=== PATIENT | female | born 1960 | race Caucasian/White ===

== ENCOUNTER 2017-03-29 18:11 | Observation (INO) | payer OTHER ==
[2017-03-29] VITALS (7 sets, daily range): BP systolic 116–185; BP diastolic 62–110; PULSE 84–112; RESP 18–20; TEMP 97.5; O2SAT 96–97
[~2017-03-29] VITALS: Ht 160 cm; Wt 69.1 kg
[2017-03-29] MEDS ORDERED: ASPI-516 CHEW (19:10)
[2017-03-29] MEDS ORDERED: ALPR.5 PO (19:10)
[2017-03-29] MEDS ORDERED: LOSA50TA PO (19:10)
[2017-03-29] MEDS ORDERED: KETO10 PO (19:10)
[2017-03-29] MEDS ORDERED: ATOR40TA16 PO (19:10)
[2017-03-29] MEDS ORDERED: ALBUAER3 INH (19:10)
--- NOTE | 2017-03-29 19:10 | PD ---
HPI Chief Complaint: Chest Pain Time Seen by Provider: 19:08 Travel History International Travel<30 days: No Contact w/Intl Traveler<30days: No Traveled to known affect area: No History of Present Illness HPI The patient is a 56 year old female who presents to the [facility] emergency department with a history of reportedly shortly after awakening this morning having onset of left arm pain. She reports that she later noticed throughout the day having chest tightness in the center of her chest. The patient reports that the pain has persisted in her left arm. She reports that she went to her primary care physician's office and was told to come to the emergency department after her blood pressure was noted to be elevated. The patient reports having nausea and a warmth patient throughout her body. She denies having any diaphoresis. She denies having any vomiting. The patient reports that she was newly placed on blood pressure medicine approximately a month ago. She is currently on losartan. The patient's blood pressure on my arrival to the room is 185/110. The patient reports that she did take one low- dose aspirin earlier today. The patient reports having a history of being prediabetic, having a history of hypertension, hyperlipidemia, and tobacco use of one pack per day. The patient also has a family history of heart disease specifically in her father who had his first [place] in his late 40s. The patient reports that she last had a stress test done in 2009. Review of systems otherwise, the patient denies having any recent fevers, worsening cough or congestion, neck pain, shortness of breath, abdominal pain, diarrhea, urinary symptoms, or neurologic symptoms. [facility] Past Medical History Narrative Medical The patient's past medical history is significant for being prediabetic, history of migraine headaches, history of COPD, hyperlipidemia, hypertension, anxiety disorder, tobacco use, history of human's ago of having weakness of her right upper extremity associated right-sided neck pain requiring admission to [facility]. She reports that a stroke was ruled out. She is unsure what the diagnosis was related to her symptomatology. Asthma: Yes High Cholesterol: Yes Diabetes: Yes Hypertension: Yes Tetanus Vaccination: < 5 Years ?: Not Past Surgical History Narrative Surgical The patient's past surgical history is significant for a hysterectomy. Hysterectomy: Yes Social History Alcohol Use: No Tobacco Use: Yes (one pack per day) Substance Use: No Allergies-Medications (Allergen,Severity, Reaction): Coded Allergies: Sulfa (Sulfonamide Antibiotics) (Verified Adverse Reaction, Severe, Headache, 03/29/17) codeine (Verified Adverse Reaction, Severe, Nausea/Vomiting, 03/29/17) morphine (Verified Adverse Reaction, Severe, Nausea/Vomiting, 03/29/17) Reported Meds & Prescriptions Reported Meds & Active Scripts Active Reported Xanax (Alprazolam) 0.5 Mg Tab 0.5 Mg PO Q8H PRN Atorvastatin (Atorvastatin Calcium) 40 Mg Tab 40 Mg PO HS Losartan (Losartan Potassium) 50 Mg Tab 50 Mg PO DAILY Ketorolac (Ketorolac Tromethamine) 10 Mg Tab 10 Mg PO TID Proair Hfa 8.5 GM Inh (Albuterol Sulfate) 90 Mcg/Act Aer 2 Puff INH Q4-6H PRN 108 mcg/actuation Aspirin 81 Mg Chew 81 Mg CHEW DAILY Review of Systems Except as stated in HPI: all other systems reviewed are Neg General / Constitutional: No: Fever Eyes: No: Visual changes HENT: No: Headaches, Rhinorrhea, Congestion, Neck Stiffness, Neck Pain Cardiovascular: Positive: Chest Pain or Discomfort Respiratory: No: Cough, Shortness of Breath Gastrointestinal: Positive: Nausea, No: Vomiting, Diarrhea, Abdominal Pain Genitourinary: No: Dysuria Musculoskeletal: No: Pain Skin: No Rash Neurologic: No: Weakness, Focal Abnormalities, Change in Mentation, Slurred Speech, Sensory Disturbance Psychiatric: No: Depression Endocrine: No: Polydipsia Hematologic/Lymphatic: No: Easy Bruising Physical Exam Narrative General: The patient is a well-developed well-nourished female in no acute distress. Head and Neck exam: Head is normocephalic atraumatic. Eyes: EOMI, pupils are equal round and reactive to light. Nose: Midline septum with pink mucous membranes Mouth: Dentition unremarkable. Moist mucus membranes. Posterior oropharynx is not erythematous. No tonsillar hypertrophy. Uvula midline. Airway patent. Neck: No palpable lymphadenopathy. No nuchal rigidity. No thyromegaly. Cardiovascular: Regular rate and rhythm without murmurs, gallops, or rubs. Lungs: Clear to auscultation bilaterally. No wheezes, rhonchi, or rales. Abdomen: Soft, without tenderness to palpation in all 4 quadrants of the abdomen. No guarding, rebound, or rigidity. Normal bowel sounds are audible. No tenderness on palpation of McBurney's point. Extremities: No clubbing, cyanosis, or edema. 2+ pulses in all 4 extremities. No calf tenderness on palpation. Back: No spinous process tenderness to palpation. No costovertebral angle tenderness to palpation. Neurologic Exam: Grossly nonfocal. Skin Exam: No rash noted. Intact skin that is warm and dry. Data Data Last Documented VS Vital Signs Date Time Temp Pulse Resp B/P (MAP) Pulse Ox O2 Delivery O2 Flow Rate FiO2 03/29/17 21:00 94 122/77 (92) 03/29/17 19:31 20 96 03/29/17 19:11 Room Air 03/29/17 18:13 97.5 Orders Orders Electrocardiogram (03/29/17 19:09) B-Type Natriuretic Peptide (03/29/17 19:09) Ckmb (Isoenzyme) Profile (03/29/17 19:09) Complete Blood Count With Diff (03/29/17 19:09) Comprehensive Metabolic Panel (03/29/17 19:09) Magnesium (Mg) (03/29/17 19:09) Prothrombin Time / Inr (Pt) (03/29/17 19:09) Act Partial Throm Time (Ptt) (03/29/17 19:09) Troponin I (03/29/17 19:09) Lipase (03/29/17 19:09) Chest, Single Ap (03/29/17 19:09) Ecg Monitoring (03/29/17 19:09) Bilateral Bp Monitoring (03/29/17 19:09) Iv Access Insert/Monitor (03/29/17 19:09) Oximetry (03/29/17 19:09) Oxygen Administration (03/29/17 19:09) Aspirin Chew (Aspirin Chew) (03/29/17 19:15) Sodium Chloride 0.9% Flush (Ns Flush) (03/29/17 19:15) Nitroglycerin Sl (Nitrostat Sl) (03/29/17 19:15) Nitroglycerin Sl (Nitrostat Sl) (03/29/17 19:30) Nitroglycerin 2% Oint (Nitroglycerin 2% (03/29/17 19:30) Aspirin Chew (Aspirin Chew) (03/29/17 19:30) Admit Order (Ed Use Only) (03/29/17 21:07) Labs Laboratory Tests Test 03/29/17 19:20 White Blood Count 8.2 TH/MM3 Red Blood Count 5.18 MIL/MM3 Hemoglobin 16.1 GM/DL Hematocrit 46.3 % Mean Corpuscular Volume 89.4 FL Mean Corpuscular Hemoglobin 31.1 PG Mean Corpuscular Hemoglobin Concent 34.7 % Red Cell Distribution Width 12.9 % Platelet Count 184 TH/MM3 Mean Platelet Volume 10.4 FL Neutrophils (%) (Auto) 64.5 % Lymphocytes (%) (Auto) 27.0 % Monocytes (%) (Auto) 5.7 % Eosinophils (%) (Auto) 2.2 % Basophils (%) (Auto) 0.6 % Neutrophils # (Auto) 5.3 TH/MM3 Lymphocytes # (Auto) 2.2 TH/MM3 Monocytes # (Auto) 0.5 TH/MM3 Eosinophils # (Auto) 0.2 TH/MM3 Basophils # (Auto) 0.0 TH/MM3 CBC Comment DIFF FINAL Differential Comment Prothrombin Time 10.0 SEC Prothromb Time International Ratio 0.9 RATIO Activated Partial Thromboplast Time 26.5 SEC Blood Urea Nitrogen 12 MG/DL Creatinine 0.72 MG/DL Random Glucose 109 MG/DL Total Protein 8.2 GM/DL Albumin 4.0 GM/DL Calcium Level 9.4 MG/DL Magnesium Level 2.0 MG/DL Alkaline Phosphatase 252 U/L Aspartate Amino Transf (AST/SGOT) 49 U/L Alanine Aminotransferase (ALT/SGPT) 81 U/L Total Bilirubin 0.3 MG/DL Sodium Level 136 MEQ/L Potassium Level 3.8 MEQ/L Chloride Level 102 MEQ/L Carbon Dioxide Level 24.8 MEQ/L Anion Gap 9 MEQ/L Estimat Glomerular Filtration Rate 83 ML/MIN Total Creatine Kinase 66 U/L Troponin I LESS THAN 0.02 NG/ML B-Type Natriuretic Peptide LESS THAN 2 PG/ML Lipase 127 U/L MDM Medical Decision Making Medical Screen Exam Complete: Yes Emergency Medical Condition: Yes Medical Record Reviewed: Yes Interpretation(s) Last Impressions Chest X-Ray 03/29/17 7759 Signed Impressions: Service Date/Time: Wednesday, March 29, 2017 19:45 - CONCLUSION: No acute disease. Ellis Olmstead Jr., MD Differential Diagnosis Acute coronary syndrome, versus aortic dissection, versus hypertensive urgency, versus pleurisy, versus acid reflux, versus pneumonia Narrative Course During the course of the patients emergency department visit, the patients history, examination, and differential diagnosis were reviewed with the patient. The patient was placed on a cardiac rehabilitation program director with oximetry and frequent blood pressure monitoring. The patient had IV access obtained and blood work sent for analysis. The patient had an ECG done on arrival that shows a sinus rhythm heart rate of 99, QRS duration 95 ms, QTC [address] segment elevation is noted. T waves are inverted in V1. The patient was initially provided aspirin 243 mg by mouth 1, sublingual nitroglycerin every 5 minutes 3, nitroglycerin 1 inch the chest wall. The patients laboratory studies were reviewed and remarkable for a white count of 8.2, hemoglobin 16.1, platelets 184, with an unremarkable differential, CMP is remarkable for a glucose of 109, AST 49, ALT 81, alkaline phosphatase 252, CPK 66, troponin I less than 0.02, lipase 127, BNP is less than 2, PT PTT within normal limits. Radiology studies were reviewed and remarkable for a chest x-ray that shows no acute cardiopulmonary disease. The patients results were discussed with the patient, including the plan of care. I explained that further testing and/ or monitoring is indicated based on the patients history, examination, and/ or laboratory findings. Therefore, I recommended admission for additional evaluation. The patient expressed understanding and was agreeable with this plan. The patient was admitted to the hospital in stable condition and sent to a bed under the care of the chest pain center. Diagnosis Primary Impression: Chest pain, rule out acute myocardial infarction Additional Impression: Uncontrolled hypertension Admitting Information Admitting Physician Requests: Observation Alejandra Robledo MD Mar 29, 2017 19:10
[2017-03-29] MEDS ORDERED: SODIUM CHLORIDE 0.9% FLUSH 10 ML FLUSH IVF PRN (19:15)
[2017-03-29] MEDS ORDERED: NITROGLYCERIN 0.4 MG SL 25 TABS/BTL SL ONE (19:15)
[2017-03-29] MEDS ORDERED: ASPIRIN 81 MG CHEW TAB PO ONE (19:15)
[2017-03-29] MEDS ORDERED: ASPIRIN 81 MG CHEW TAB CHEW ONE (19:30)
[2017-03-29] MEDS ORDERED: NITROGLYCERIN 2% OINT 1 GM PACKET TOPICAL ONE (19:30)
[2017-03-29] MEDS: NITROGLYCERIN 0.4 MG SL 25 TABS/BTL SL PRN ×2 (19:30→19:35)
[2017-03-29 20:15] LABS: AUTOMATED NEUTROPHIL # 5.3 TH/MM3 (1.8-7.7); BASOPHIL % 0.6 % (0.0-2.0); EOSINOPHIL # 0.2 TH/MM3 (0-0.4); EOSINOPHIL % 2.2 % (0.0-4.0); HEMATOCRIT 46.3 % (35.0-46.0); HEMO FLAGS DIFF FINAL; LYMPHOCYTE # 2.2 TH/MM3 (1.0-4.8); MEAN CELL VOLUME 89.4 FL (80.0-100.0); MEAN CORPUSCULAR HEMOGLOBIN 31.1 PG (27.0-34.0); MEAN CORPUSCULAR HGB CONC 34.7 % (32.0-36.0); MONO % 5.7 % (0.0-8.0); NEUT % 64.5 % (16.0-70.0); PLATELET COUNT 184 TH/MM3 (150-450); RED BLOOD COUNT 5.18 MIL/MM3 (4.00-5.30); RED CELL DISTRIBUTION WIDTH 12.9 % (11.6-17.2); WHITE BLOOD COUNT 8.2 TH/MM3 (4.0-11.0)
--- NOTE | 2017-03-29 20:15 | RADRPT ---
EXAM DATE/TIME: 03/29/2017 19:45 [facility] COMPARISON: No previous studies available for comparison. INDICATIONS : Chest pain, short of breath. MEDICAL HISTORY : None. SURGICAL HISTORY : None. ENCOUNTER: Initial ACUITY: 1 day PAIN SCORE: 0/10 LOCATION: Bilateral chest FINDINGS: A single view of the chest demonstrates the lungs to be symmetrically aerated without evidence of mas s, infiltrate or effusion. The cardiomediastinal contours are unremarkable. Osseous structures are intact. CONCLUSION: No acute disease. Ellis Olmstead Jr., MD on March 29, 2017 at 20:12 Board Certified Radiologist. This report was verified electronically.
[2017-03-29 20:23] LABS: APTT (PATIENT) 26.5 SEC (24.3-30.1); INTERNATIONAL NORMALIZED RATIO 0.9 RATIO
[2017-03-29 20:45] LABS: ALT (GPT) 81 U/L (10-53)
[2017-03-29 20:53] LABS: ALKALINE PHOSPHATASE 252 U/L (45-117); ANION GAP 9 MEQ/L (5-15); AST (GOT) 49 U/L (15-37); BICARBONATE 24.8 MEQ/L (21.0-32.0); BLOOD UREA NITROGEN 12 MG/DL (7-18); CHLORIDE 102 MEQ/L (98-107); GLOMERULAR FILTRATION RATE 83 ML/MIN (>89); POTASSIUM 3.8 MEQ/L (3.5-5.1); SODIUM (NA) 136 MEQ/L (136-145); TOTAL BILIRUBIN ADULT 0.3 MG/DL (0.2-1.0)
[2017-03-29 20:55] LABS: CREATINE KINASE 66 U/L (26-192)
[2017-03-29] MEDS ORDERED: TEMAZEPAM 15 MG CAP PO PRN (23:30)
[2017-03-29] MEDS ORDERED: ACETAMINOPHEN 500 MG CPLT PO PRN (23:30)
[2017-03-29] MEDS ORDERED: SODIUM CHLORIDE 0.9% FLUSH 10 ML FLUSH IV FLUSH PRN (23:30)
[2017-03-29] MEDS ORDERED: ONDANSETRON HCL 4 MG/2 ML VIAL IV PUSH PRN (23:30)
[2017-03-30 00:17] LABS: CREATINE KINASE 50 U/L (26-192)
[2017-03-30 02:58] LABS: CREATINE KINASE 46 U/L (26-192)
[2017-03-30 03:12] VITALS: BP 130/63; PULSE 81; RESP 18; TEMP 97.3; O2SAT 90
[2017-03-30 04:52] VITALS: PULSE 85
[2017-03-30 07:54] VITALS: BP 119/63; PULSE 87; RESP 20; TEMP 97.8; O2SAT 96
[2017-03-30 08:15] VITALS: O2SAT 96
[2017-03-30 08:30] VITALS: PULSE 83
[2017-03-30] MEDS ORDERED: SODIUM CHLORIDE 0.9% FLUSH 10 ML FLUSH IV FLUSH SCH (09:00)
[2017-03-30] MEDS ORDERED: REGADENOSON INJ 0.4 MG/5 ML SYR ONE (10:22)
--- NOTE | 2017-03-30 11:46 | RADRPT ---
EXAM DATE/TIME: 03/30/2017 10:29 [facility] COMPARISON: No previous studies available for comparison. INDICATIONS : Left arm pain moving to substernal chest pain. Angina. DOSE: 27.1 mCi Tc99m Myoview at stress. 8.3 mCi Tc99m Myoview at rest. 0.4 mg Lexiscan STRESS SYMPTOMS: Dyspnea and diaphoresis. EJECTION FRACTION: > 70% MEDICAL HISTORY : Hypercholesterolemia. Hypertension. Diabetes mellitus type 2. SURGICAL HISTORY : Hysterectomy. ENCOUNTER: Initial ACUITY: 1 day PAIN SCALE: 6/10 LOCATION: Substernal chest TECHNIQUE: The patient underwent pharmacologic stress with infusion of prescribed dose. Continuous ECG tracing was monitored during stress. Gated SPECT imaging was performed after stress and conventional SPECT i maging was performed at rest. The examination was performed on a SPECT/CT scanner, both attenuation and non-corrected datasets were reviewed. FINDINGS: DISTRIBUTION: The maximum perfused segment at stress is in the septum and inferior wall. There is minimal redistribution anterior lateral wall, less than 50% of doubtful significance. Corre lation is suggested. There is normal wall motion with ejection fraction greater than 70%. CONCLUSION: Probably negative for stress-induced ischemia. Correlation suggested. RISK CATEGORY: Low (<1% Annual Mortality Rate) Jayme Fuentes MD FACR on March 30, 2017 at 11:44 Board Certified Radiologist. This report was verified electronically.
[2017-03-30 11:54] VITALS: BP 120/79; PULSE 100; RESP 20; TEMP 98.4; O2SAT 93
--- NOTE | 2017-03-30 12:32 | HHI.HP ---
[facility] Primary Care Physician Annetta Munson M.D. Chief Complaint Chest pain History of Present Illness This is a 56-year-old female that presents to ED via private vehicle with a complaint of first doing a left arm discomfort after waking up yesterday morning. He'll be there for a few minutes but was intermittent throughout the day. She states that she then had lunch in the afternoon and soon after having lunch developed a central chest tightness with nausea. She decided to get checked at her PCP. She states that her blood pressure was elevated at 160/110 and was then told to come to the ED for further evaluation. The chest tightness is still there however the intensity waxes and wanes. She found nothing to really worsen or improve it. Denies recent illness. Denies fevers or chills. Denies emesis. Denies diarrhea constipation blood in stool. Review of Systems General: Patient denies fevers, chills recent, and recent travel HEENT: Patient denies headache, sore throat, difficulty swallowing. Cardiovascular: Has the chest discomfort as mentioned above. Denies sensation of heart beating rapidly or irregularly. No syncope. Denies diaphoresis. Respiratory: Denies shortness of breath or inspirational chest discomfort. Denies coughing wheezing or hemoptysis. GI: She was nauseous. Patient denies vomiting, diarrhea, abdominal pain, bloody stools. Musculoskeletal: Patient denies joint pain or edema. Denies calf pain or edema. Neurovascular: Patient denies numbness, tingling, weakness in extremities. Denies headache. Endocrine: Denies polyuria and polydipsia. Hematologic: Denies easy bruising. Skin: Denies rash or itching. Past Family Social History Allergies: Coded Allergies: Sulfa (Sulfonamide Antibiotics) (Verified Adverse Reaction, Severe, Headache, 03/29/17) codeine (Verified Adverse Reaction, Severe, Nausea/Vomiting, 03/29/17) morphine (Verified Adverse Reaction, Severe, Nausea/Vomiting, 03/29/17) Past Medical History Hypertension, hyperlipidemia, anxiety, tobacco abuse. Denies diabetes and known CAD. Past Surgical History Hysterectomy. Reported Medications Reported Meds & Active Scripts Active Reported Xanax (Alprazolam) 0.5 Mg Tab 0.5 Mg PO Q8H PRN Atorvastatin (Atorvastatin Calcium) 40 Mg Tab 40 Mg PO HS Losartan (Losartan Potassium) 50 Mg Tab 50 Mg PO DAILY Ketorolac (Ketorolac Tromethamine) 10 Mg Tab 10 Mg PO TID Proair Hfa 8.5 GM Inh (Albuterol Sulfate) 90 Mcg/Act Aer 2 Puff INH Q4-6H PRN 108 mcg/actuation Aspirin 81 Mg Chew 81 Mg CHEW DAILY Active Ordered Medications Current Medications Medications (Trade) Dose Ordered Sig/Abhilash Route Start Time Stop Time Status Last Admin (NS Flush) 2 ml UNSCH PRN IVF 03/29/17 19:15 (Nitrostat Sl) 0.4 mg Q5M PRN SL 03/29/17 19:30 03/29/17 19:35 (NS Flush) 2 ml UNSCH PRN IV FLUSH 03/29/17 23:30 (NS Flush) 2 ml BID IV FLUSH 03/30/17 09:00 (Tylenol) 500 mg Q4H PRN PO 03/29/17 23:30 (Zofran Inj) 4 mg Q6H PRN IV PUSH 03/29/17 23:30 (Restoril) 15 mg HS PRN PO 03/29/17 23:30 03/29/17 23:32 Family History States that her father had onset CAD in his 50s of pancreatic cancer. Social History Patient smokes one pack of cigarettes daily. Denies alcohol or illicit drugs. Physical Exam Vital Signs Vital Signs Date Time Temp Pulse Resp B/P (MAP) Pulse Ox O2 Delivery O2 Flow Rate FiO2 03/30/17 11:54 98.4 100 20 120/79 (93) 93 03/30/17 08:30 83 03/30/17 08:15 96 21 03/30/17 07:54 97.8 87 20 119/63 (81) 96 03/30/17 04:52 85 03/30/17 03:12 97.3 81 18 130/63 (85) 90 03/29/17 23:26 84 20 120/62 (81) 97 Room Air 03/29/17 23:15 96 Room Air 03/29/17 23:15 Room Air 03/29/17 21:00 94 122/77 (92) 03/29/17 19:31 110 20 175/96 (122) 96 03/29/17 19:12 185/110 (135) 03/29/17 19:11 97 03/29/17 19:11 97 Room Air 03/29/17 18:13 97.5 112 18 116/73 (87) 96 Room Air Physical Exam GENERAL: This is a well-nourished, well-developed patient, in no apparent distress. Patient speaks in clear complete sentences. Patient is pleasant. HEENT: Head is atraumatic and normocephalic. Neck is supple without lymphadenopathy and trachea is midline. No JVD or carotid bruits. CARDIOVASCULAR: Regular rate and rhythm without murmurs, gallops, or rubs. RESPIRATORY: Clear to auscultation. Breath sounds equal bilaterally. No wheezes , rales, or rhonchi. Chest wall is nontender. No use of accessory muscles. GASTROINTESTINAL: Abdomen is nontender, nondistended. Abdomen soft. No obvious pulsatile mass or bruit. No CVA tenderness. Strong femoral pulses bilaterally. Normal bowel sounds in all quadrants. MUSCULOSKELETAL: Patient is moving upper and lower extremities freely. No calf tenderness or edema, no Homans sign. Strong pulses in upper and lower extremities. NEUROLOGICAL: Patient is alert and oriented. Cranial nerves 2-12 are grossly intact. No focal deficits and speech is clear. SKIN: No rash and turgor is normal. Laboratory Laboratory Tests Test 03/29/17 19:20 03/29/17 23:26 03/30/17 02:15 White Blood Count 8.2 Red Blood Count 5.18 Hemoglobin 16.1 Hematocrit 46.3 Mean Corpuscular Volume 89.4 Mean Corpuscular Hemoglobin 31.1 Mean Corpuscular Hemoglobin Concent 34.7 Red Cell Distribution Width 12.9 Platelet Count 184 Mean Platelet Volume 10.4 Neutrophils (%) (Auto) 64.5 Lymphocytes (%) (Auto) 27.0 Monocytes (%) (Auto) 5.7 Eosinophils (%) (Auto) 2.2 Basophils (%) (Auto) 0.6 Neutrophils # (Auto) 5.3 Lymphocytes # (Auto) 2.2 Monocytes # (Auto) 0.5 Eosinophils # (Auto) 0.2 Basophils # (Auto) 0.0 CBC Comment DIFF FINAL Differential Comment Prothrombin Time 10.0 Prothromb Time International Ratio 0.9 Activated Partial Thromboplast Time 26.5 Blood Urea Nitrogen 12 Creatinine 0.72 Random Glucose 109 Total Protein 8.2 Albumin 4.0 Calcium Level 9.4 Magnesium Level 2.0 Alkaline Phosphatase 252 Aspartate Amino Transf (AST/SGOT) 49 Alanine Aminotransferase (ALT/SGPT) 81 Total Bilirubin 0.3 Sodium Level 136 Potassium Level 3.8 Chloride Level 102 Carbon Dioxide Level 24.8 Anion Gap 9 Estimat Glomerular Filtration Rate 83 Total Creatine Kinase 66 50 46 Troponin I LESS THAN 0.02 LESS THAN 0.02 LESS THAN 0.02 B-Type Natriuretic Peptide LESS THAN 2 Lipase 127 Result Diagram: 03/29/17191903/29/171919 Imaging Last 48 hours Impressions Myocardial Perfusion Scan Nuc Med 03/30/17 0000 Signed Impressions: Service Date/Time: Thursday, March 30, 2017 10:29 - CONCLUSION: Probably negative for stress-induced ischemia. Correlation suggested. RISK CATEGORY: Low (<1%% Annual Mortality Rate) Jayme Fuentes MD FACR Chest X-Ray 03/29/171908 Signed Impressions: Service Date/Time: Wednesday, March 29, 2017 19:45 - CONCLUSION: No acute disease. Ellis Olmstead Jr., MD Course EKGs are sinus rhythm without significant ST segment depressions or elevations. Caprini VTE Risk Assessment Caprini VTE Risk Assessment: No/Low Risk (score <= 1) Caprini Risk Assessment Model Point Value = 1 Point Value = 2 Point Value = 3 Point Value = 5 Age 41-60 Minor surgery BMI > 25 kg/m2 Swollen legs Varicose veins or History of unexplained or recurrent spontaneous Oral contraceptives or hormone replacement Sepsis (< 1 month) Serious lung disease, including pneumonia (< 1 month) Abnormal pulmonary function Acute myocardial infarction Congestive heart failure (< 1 month) History of inflammatory bowel disease Medical patient at bed rest Age 61-74 Arthroscopic surgery Major open surgery (> 45 min) Laparoscopic surgery (> 45 min) Malignancy Confined to bed (> 72 hours) Immobilizing plaster cast Central venous access Age >= 75 History of VTE Family history of VTE Factor V Leiden Prothrombin [id number] Lupus anticoagulant Anticardiolipin antibodies Elevated serum homocysteine Heparin-induced thrombocytopenia Other congenital or acquired thrombophilia Stroke (< 1 month) Elective arthroplasty Hip, pelvis, or leg fracture Acute spinal cord injury (< 1 month) Prophylaxis Regimen Total Risk Factor Score Risk Level Prophylaxis Regimen 0-1 Low Early ambulation 2 Moderate Order ONE of the following: *Sequential Compression Device (SCD) *Heparin 5000 units SQ BID 3-4 Higher Order ONE of the following medications: *Heparin 5000 units SQ TID *Enoxaparin/Lovenox 40 mg SQ daily (WT < 150 kg, CrCl > 30 mL/min) *Enoxaparin/Lovenox 30 mg SQ daily (WT < 150 kg, CrCl > 10-29 mL/min) *Enoxaparin/Lovenox 30 mg SQ BID (WT < 150 kg, CrCl > 30 mL/min) AND/OR *Sequential Compression Device (SCD) 5 or more Highest Order ONE of the following medications: *Heparin 5000 units SQ TID (Preferred with Epidurals) *Enoxaparin/Lovenox 40 mg SQ daily (WT < 150 kg, CrCl > 30 mL/min) *Enoxaparin/Lovenox 30 mg SQ daily (WT < 150 kg, CrCl > 10-29 mL/min) *Enoxaparin/Lovenox 30 mg SQ BID (WT < 150 kg, CrCl > 30 mL/min) AND *Sequential Compression Device (SCD) Assessment and Plan Assessment and Plan * Chest pain: Patient has had serial cardiac enzymes and EKGs for ruling out purposes. She was seen by Dr. Sameer Moreno of cardiology and the chest pain center. He had a Lexiscan and results were discussed with Dr. Moreno as negative and will be discharged home at this time with instructions to follow- up with PCP and cardiology. Return to ED for interval issues. * Hypertension: Continue current medication. * Hyperlipidemia: Continue current medication. * Tobacco abuse: Patient has been counseled on the importance of smoking cessation. Patient is stable at this time. She is agreeable to this plan. Joshua Jack Mar 30, 2017 12:31
--- NOTE | 2017-03-30 12:34 | HHI.DCPOC ---
Discharge Care Plan Diagnosis: (1) Chest pain (2) Hypertension (3) Hyperlipidemia (4) Tobacco abuse Goals to Promote Your Health * To prevent worsening of your condition and complications * To maintain your health at the optimal level Directions to Meet Your Goals Take your medications as prescribed Follow your dietary instruction Follow activity as directed Keep your appointments as scheduled Take your immunizations and boosters as scheduled If your symptoms worsen call your PCP, if no PCP go to Urgent Care Center or Emergency Room Smoking is Dangerous to Your Health. Avoid second hand smoke Call the 24-hour hour crisis hotline for domestic abuse at Joshua Jack Mar 30, 2017 12:33
--- NOTE | 2017-03-30 12:35 | EKG ---
Date Performed: 03/30/2017 Time Performed: 03:04:10 PTAGE: 56 years EKG: Sinus rhythm NORMAL ECG PREVIOUS TRACING : 03/29/2017 18.47 Since previous tracing, no significant change noted DOCTOR: Sameer Moreno Interpretating Date/Time 03/30/2017 12:34:04
--- NOTE | 2017-03-30 12:37 | EKG ---
Date Performed: 03/29/2017 Time Performed: 23:26:28 PTAGE: 56 years EKG: Sinus rhythm NORMAL ECG INTERPRETATION BASED ON A DEFAULT AGE OF 40 YEARS PREVIOUS TRACING : 03/29/2017 18.47 Since previous tracing, no significant change noted DOCTOR: Sameer Moreno Interpretating Date/Time 03/30/2017 12:36:35
--- NOTE | 2017-03-30 12:40 | EKG ---
Date Performed: 03/29/2017 Time Performed: 18:47:56 PTAGE: 56 years EKG: Sinus rhythm NORMAL ECG NO PREVIOUS TRACING DOCTOR: Sameer Moreno Interpretating Date/Time 03/30/2017 12:38:45
--- NOTE | 2017-03-30 12:43 | TR ---
Date Performed: 03/30/2017 Time Performed: 10:45:07 DOCTOR: Sameer Moreno DRUG LIST: CLINICAL HISTORY: REASON FOR TEST: CHEST PAIN REASON FOR ENDING: OBSERVATION: CONCLUSION: Lexiscan stress test was performed under standard four minute protocol. Radionuclid e was injected one minute prior to ending the test. No electrocardiographic abormalities were present to suggest ischemia. Nuclear imaging and interpretation are pending. COMMENTS:
[2017-03-30] MEDS ORDERED: LOSARTAN 50 MG TAB PO SCH (14:00)
[2017-03-30] MEDS ORDERED: ATORVASTATIN 40 MG TAB PO SCH (21:00)
== END 2017-03-30 14:10 | disposition home or self-care (01) ==
LOC: NEPE 18:11 → NEDA 21:08 → NEPGCP 03-30 00:34
PROVIDERS: ADMIT Internal Medicine Interventional Cardiology; ATTEND Internal Medicine Interventional Cardiology
DX: R07.9 Chest pain, unspecified (principal); I10 Essential (primary) hypertension; E78.5 Hyperlipidemia, unspecified; F17.210 Nicotine dependence, cigarettes, uncomplicated; M79.602 Pain in left arm; R11.0 Nausea; R73.03 Prediabetes; Z82.49 Family history of ischemic heart disease and other diseases of the circulatory system; Z79.899 Other long term (current) drug therapy; F41.9 Anxiety disorder, unspecified; R06.00 Dyspnea, unspecified
CPT/HCPCS: 71010; 78452; 80053; 82550; 83690; 83735; 83880; 84484; 85025; 85610; 85730; 93005; 93017; 99285; A9502; G0378; J2785

== ENCOUNTER → 2017-11-07 | Outpatient (CLI) | payer OTHER ==
[~2017-11-07] MED LIST: ALBUAER3 INH; ALPR.5 PO; ASPI-516 CHEW; ATOR40TA16 PO; KETO10 PO; LOSA50TA PO
== END ==
LOC: CLAB 09:21
PROVIDERS: ATTEND Family Medicine
DX: R53.83 Other fatigue (principal)
CPT/HCPCS: 36415; 82140

== ENCOUNTER 2018-02-24 07:33 | Inpatient (IN) ==
[2018-02-24] MEDS ORDERED: Metoprolol Tartrate 25 MG Tablet PO SCH (08:49)
[2018-02-24] MEDS ORDERED: Chlorhexidine Gluconate 2% 1 Pack (2 Cloths) TOPICAL SCH (08:49)
[2018-02-24] MEDS ORDERED: ceFAZolin 2 GM Premix Inj 2 GM/50 ML PIGGYBACK IV.SIG SCH (09:00)
[2018-02-24] MEDS ORDERED: Sodium Chlor 0.9% Inj 500 ML IV.SIG SCH (09:00)
[2018-02-24] MEDS ORDERED: Bupivacaine/Epinephrine Inj 0.25% 50 ML Vial ONE (10:54)
[2018-02-24] MEDS ORDERED: Glycopyrrolate Inj 1 MG/5 ML Syringe IV.PUSH ONE (11:22)
[2018-02-24] MEDS ORDERED: Neostigmine Inj 5 MG/5 ML Syringe IV.PUSH ONE (11:22)
[2018-02-24] MEDS ORDERED: Lidocaine PF 1% Inj 5 ML Syringe OTHER ONE (11:22)
--- NOTE | 2018-02-24 12:39 | P.OP ---
- Preoperative Diagnosis (1) Symptomatic cholelithiasis (2) Primary biliary cirrhosis - Postoperative Diagnosis (1) Primary biliary cirrhosis (2) Symptomatic cholelithiasis Date of procedure: 02/24/18 Procedure: Laparoscopic cholecystectomy Laparoscopic core needle liver biopsy x2 Anesthesia: JAVAD Surgeon: Sebastian Mir MD Design Verification Engineer: Haritha IRELAND Estimated blood loss (mL): 5 Pathology: other (gallbladder, core needle liver biopsy x 2) Operation and Findings: Complications: None apparent Operative findings: Hepatomegaly with moderate appearing fibrosis and nodularity. Gallbladder is thin-walled with single large gallstone. Procedure in detail: The patient was taken to the operating room and placed in the supine position. General endotracheal anesthesia was induced. The abdomen was prepped and draped in usual sterile fashion and a surgical timeout was performed to verify correct patient procedure and site. Appropriate perioperative antibiotics were administered. Local anesthetic was injected in the skin and subcutaneous tissue superior to the umbilicus and a 5 mm incision performed. The abdomen was entered using the Optiview 5 mm trocar with direct laparoscopic visualization. The abdomen was then insufflated to 15 mmHg with CO2 gas which the patient tolerated well. Next a 12 mm port was placed in the epigastrium and two 5 mm ports in the right upper quadrant and right lateral abdomen. The patient was placed in reverse Trendelenburg position and turned slightly to the left. Attention was turned to the right upper quadrant and the dome of the gallbladder was grasped and retracted cephalad. The infundibulum was retracted laterally to expose Calot's triangle. Blunt dissection and judicious use of electrocautery was used to expose the cystic duct and the cystic artery directly entering the gallbladder. Two clips were placed proximally on each of these structures and one distally and they were transected. The gallbladder was then removed from the liver bed using electrocautery. Hemostasis was achieved with electrocautery and placement of 3 g Surgicel powder in the gallbladder fossa. The gallbladder was then removed from the abdomen using an Endo Catch bag. The clips were in place on the cystic duct and cystic artery stumps with no bleeding or bile leakage. Using the BIOPT Gun device two core needle liver biopsies were obtained via a separate small stab incision in the right upper abdomen. Hemostasis was achieved at the sites. At this point, the abdomen was allowed to desufflate and trochars were removed. The fascia at the 12 mm port site was closed with 0 Vicryl suture. Skin was closed with subcuticular 4-0 Monocryl as well as Dermabond. The patient tolerated the procedure well and was extubated and taken to PACU in stable condition. All sponge and instrument counts were correct.
[2018-02-24] MEDS ORDERED: HYDROmorphone PF Inj 2 MG/ML Vial ONE ×3 (13:01→14:02)
[2018-02-24] MEDS ORDERED: Post-op Orders (for Pharmacy) OTHER ONE (13:15)
[2018-02-24] MEDS ORDERED: fentaNYL Citrate Inj 100 MCG/2 ML Ampul ONE (13:40)
--- NOTE | 2018-02-24 13:54 | XR ---
EXAM DATE: 02/24/2018 12:00 AM EDT AGE/SEX: 57 years / Female INDICATIONS: Short of breath. Post Cholecystectomy. CLINICAL DATA: This is the patient's initial encounter. Patient reports that signs and symptoms have been present for 1 day and indicates a pain score of Nonresponsive. MEDICAL/SURGICAL HISTORY: Hypercholesterolemia. Hypertension. Diabetes II Hysterectomy. COMPARISON: [facility] [place]ST [place], 03/29/2017. . FINDINGS: There is mild prominence to the interstitium when compared to the most recent comparison. Cardiac luis armando houette is appropriate in size. Minimal parenchymal changes left base. No pneumothorax. No pleural ef fusion. CONCLUSION: Mild interstitial prominence otherwise negative Electronically signed by: Jayme Fuentes MD 02/24/2018 1:53 PM EDT
[2018-02-24] MEDS ORDERED: Morphine Sulfate Inj 2 MG/ML Vial IV.PUSH PRN (14:39)
[2018-02-24] MEDS ORDERED: Ketorolac Inj 30 MG/ML (IVP) Vial IV.PUSH ONE (14:45)
[2018-02-24 15:26] LABS: ABG Base Excess 1.2 mmol/L (-2-2); ABG PCO2 50 mmHg (38-42); ABG PO2 59 mmHG (61-120)
[2018-02-24] MEDS ORDERED: Naloxone Inj 0.4 MG/ML Vial IV.PUSH PRN (15:50)
[2018-02-24] MEDS: Morphine Inj 4 MG/ML Vial IV.PUSH PRN ×2 (17:19→20:28)
--- NOTE | 2018-02-24 19:18 | P.CONIM ---
History of Present Illness Primary Care Provider: Annetta Munson MD History of Present Illness: Pt is 57 yo admitted after lap michael and liver bx from the [facility]. She had an uneventful operation and had 1100 crystaloid.But in [facility] was severely hypertensive with sbp 220 and hypoxic. Pt was placed on bipap and given 40mg iv lasix for presumed flash pulmonary edema. Hydralazine was given for bp and pain med. I saw the pt in ICU and was on 6lnc and feeling better. her bp normalized. Pt reports that in past her bp intermittently spikes when getting her abdomen pains. PMH: Pt follows with [facility] diagnosed with Primary biliary cirrhosis. elevated AMA ab with imaging finding of cirrhosis. CT a/p 02/21 fatty/nodular changes consistent with cirrhosis. mild splenomegaly. periportal lymphadenopathy CT chest 02/16 Benigh appearing lymph node near xiphoid process PFT 2016 fev1 41% interpret with care and repeat recommended to clarify copd Echo 2017 nlm LVF EF 60%. mild MR and mod TVR Lexiscan 04/08 probably negative for ischemia migraines anxiety/depression cervical dystonia gerd [facility] - History History Provided By: Patient - Medical History Medical History: Medical History (Last Reviewed 02/24/18 @ 08:13 by Mary Beth Dang) Anxiety Back pain COPD (chronic obstructive pulmonary disease) Cervical dystonia Cirrhosis of liver Diverticulitis Gallbladder disease Gallstones H/O: hysterectomy Hiatal hernia History of anesthesia reaction History of tuberculosis Hypercholesteremia Hypertension - Surgical History Surgical History: Surgical History (Last Updated 02/24/18 @ 08:13 by Mary Beth Dang) History of colonoscopy History of esophagogastroduodenoscopy (EGD) - Tobacco History Second Hand Smoke Exposure: Yes Tobacco Use In Past 30 Days: Yes Smoking Status: Current every day smoker Tobacco Type: Cigarettes - Alcohol History How Often Do You Have a Drink Containing Alcohol: Never - Substance Use History Substance History: No History of Abuse - Travel History Recent Travel in the [place] Within the Last 8 Weeks: No Recent Travel Out of the Country Within the Last 8 Weeks: No Medications and Allergies Active Medications: Active Medications Chlorhexidine Gluconate (Chlorhexidine 2% Cloth) 3 pack TOPICAL [employer] L[employer] ROOM ATTENDANT DYAN Stop: 02/27/18 08:48 Last Admin: 02/24/18 08:08 Dose: 3 pack Chlorhexidine Gluconate (Chlorhexidine 2% Cloth) 3 pack TOPICAL DAILY@0400 [facility] Stop: 03/02/18 03:59 Chlorhexidine Gluconate (Chlorhexidine 2% Cloth) 3 pack TOPICAL DAILY@0400 PRN PRN Reason: Extra cloth needed Stop: 03/02/18 03:59 Lactated Ringer's (Lr 1000 Ml Inj) 1,000 mls @ 30 mls/hr IV.SIG .Q24H [facility] Stop: 02/27/18 08:59 Last Admin: 02/24/18 08:15 Dose: 30 mls/hr Sodium Chloride (Ns Inj) 500 mls @ 30 mls/hr IV.SIG .Q10H DYAN Metronidazole/Sodium Chloride (Flagyl 500 Mg Inj) 100 mls @ 100 mls/hr IV.SIG [employer] ROOM ATTENDANT [facility] Stop: 02/27/18 08:59 Last Admin: 02/24/18 09:14 Dose: 100 mls/hr Cefazolin Sodium/Dextrose (Ancef 2 Gm Premix Inj) 2 gm in 50 mls @ 100 mls/hr IV.SIG [employer] ROOM ATTENDANT [facility] Stop: 02/27/18 08:59 Acetaminophen (Ofirmev Inj) 1,000 mg in 100 mls @ 400 mls/hr IV.SIG [employer] RO[employer] ATTENDANT [facility] Stop: 02/27/18 09:14 Last Admin: 02/24/18 09:11 Dose: 400 mls/hr Metoprolol Tartrate (Lopressor) 25 mg PO [employer] RO[employer] ATTENDANT [facility] Stop: 02/27/18 08:48 Last Admin: 02/24/18 09:08 Dose: Not Given Miscellaneous Information (Misc Nursing Information) 0 each OTHER UNSCH PRN PRN Reason: SEE LABEL COMMENTS Stop: 02/25/18 13:14 Morphine Sulfate (Morphine Inj) 2 mg IV.PUSH Q3H PRN PRN Reason: PAIN 1-5;IF UNABLE TO TAKE PO Morphine Sulfate (Morphine Inj) 4 mg IV.PUSH Q3H PRN PRN Reason: PAIN 6-10 Last Admin: 02/24/18 17:19 Dose: 4 mg Naloxone HCl (Narcan Inj) 0.4 mg IV.PUSH UNSCH PRN PRN Reason: SEE LABEL COMMENTS Ondansetron HCl (Zofran Inj) 4 mg IV.PUSH Q6H PRN PRN Reason: NAUSEA OR VOMITING Last Admin: 02/24/18 17:22 Dose: 4 mg Oxycodone HCl (Roxicodone) 5 mg PO Q4H PRN PRN Reason: PAIN SCALE 4 TO 10 Oxycodone/Acetaminophen (Percocet 5/325 Mg) 1 tab PO Q4H PRN PRN Reason: PAIN 1-5 Oxycodone/Acetaminophen (Percocet 5/325 Mg) 2 tab PO Q4H PRN PRN Reason: PAIN 6-10 Sodium Chloride (Ns Flush) 2 ml IV.FLUSH BID DYAN Sodium Chloride (Ns Flush) 2 ml IV.FLUSH PRN PRN PRN Reason: FLUSH AFTER USING IV ACCESS Allergies Allergy/AdvReac Type Severity Reaction Status Date / Time codeine AdvReac Severe Nausea/Vomi Verified 02/23/18 10:08 ting morphine AdvReac Severe Nausea/Vomi Verified 02/23/18 10:08 ting Sulfa (Sulfonamide AdvReac Severe Headache Verified 02/23/18 10:08 Antibiotics) Home Medications Medication Instructions Recorded Confirmed Type alprazolam [Xanax] 1 mg PO BID PRN 02/21/18 02/24/18 History albuterol sulfate 0.63 mg INHALATION QID PRN 02/24/18 02/24/18 History albuterol sulfate [ProAir HFA] 2 puff INHALATION Q6H PRN 02/24/18 02/24/18 History atorvastatin 40 mg PO DAILY 02/24/18 02/24/18 History cholecalciferol (vitamin D3) 4,000 unit PO DAILY 02/24/18 02/24/18 History [Vitamin D3] lactulose 10 g PO QID 02/24/18 02/24/18 History pantoprazole 40 mg PO DAILY 02/24/18 02/24/18 History Exam Vital signs: Vital Signs 02/24/18 08:23 02/24/18 12:59 02/24/18 13:15 Temperature 98.6 F 97.6 F Pulse Rate 101 H 98 H 114 H Respiratory Rate 18 22 28 H Blood Pressure 142/81 H 236/115 H 196/105 H Pulse Oximetry 97 92 L 91 L 02/24/18 13:20 02/24/18 13:30 02/24/18 13:45 Temperature Pulse Rate 105 H 109 H 111 H Respiratory Rate 28 H 28 H 24 Blood Pressure 245/109 H 164/61 H 167/74 H Pulse Oximetry 92 L 91 L 94 L 02/24/18 14:00 02/24/18 14:05 02/24/18 14:13 Temperature Pulse Rate 110 H Respiratory Rate 24 Blood Pressure 160/82 H Pulse Oximetry 94 L 90 L 96 02/24/18 14:15 02/24/18 14:30 02/24/18 14:45 Temperature Pulse Rate 106 H 106 H 100 H Respiratory Rate 24 24 24 Blood Pressure 160/82 H 160/82 H 124/70 Pulse Oximetry 95 95 94 L 02/24/18 15:00 02/24/18 15:30 02/24/18 15:45 Temperature Pulse Rate 107 H 102 H 101 H Respiratory Rate 24 24 22 Blood Pressure 130/72 141/77 H 127/76 Pulse Oximetry 94 L 92 L 92 L 02/24/18 16:00 02/24/18 16:30 02/24/18 16:45 Temperature 97.8 F Pulse Rate 102 H 99 H 96 H Respiratory Rate 22 20 18 Blood Pressure 128/75 138/63 109/62 Pulse Oximetry 95 95 95 02/24/18 17:15 02/24/18 17:28 Temperature Pulse Rate 98 H Respiratory Rate 16 Blood Pressure 118/78 Pulse Oximetry 97 96 Intake & Output 02/24/18 02/24/18 02/25/18 06:59 18:59 06:59 Intake Total 300 / 300 Output Total 1525 / 1525 Balance -1225 / -1225 Weight 64.1 kg Intake: Anesthesia Amount 300 / 300 Output: Estimated Blood Loss 25 / 25 Urine Amount (Catheter) 1500 / 1500 Indwelling Urethral Catheter 1500 / 1500 Other: Weight On Admission 70.9 kg nad heart reg lung diminished bases abd diffusely tender post lap michael. no bs ext no edema Results - Labs CBC & Chem 7: 02/25/18 04:46 02/25/18 04:46 Labs: Laboratory Results - last 24 hr 02/24/18 15:20 Puncture Site Right radial Patient Temperature 98.6 O2 Saturation 86 L* ABG pH 7.35 L ABG pCO2 50 H ABG pO2 59 L* ABG HCO3 26 ABG O2 Content 19.5 ABG Base Excess 1.2 ABG Methemoglobin 1.5 Fei Test Present Hemoglobin 16.1 H Carboxyhemoglobin 3.5 O2 Delivery Device Nasal cannula Liter Flow 6.00 Critical Value Yes - Imaging Impressions Chest X-Ray 02/24/18 00:00 CONCLUSION: Mild interstitial prominence otherwise negative Assessment and Plan - Assessment (1) Pulmonary edema Code(s): J81.1 - Chronic pulmonary edema Status: Acute Plan: Pt is 57 yo admitted after lap michael and liver bx from the [facility]. She had an uneventful operation/1100 crystalloid, but in [facility] was severely hypertensive with sbp 220 and hypoxic. Pt was placed on bipap and given 40mg iv lasix for presumed flash pulmonary edema. Hydralazine was given for bp and pain med. I saw the pt in ICU and was on 6lnc and feeling better. her bp normalized. Pt reports that in past her bp intermittently spikes when getting her abdomen pains. Pt follows with [facility] and diagnosed with Primary biliary cirrhosis based on elevated AMA ab and with imaging finding of cirrhosis. CT a/p 02/21 fatty/nodular changes consistent with cirrhosis. mild splenomegaly. periportal lymphadenopathy CT chest 02/16 Benigh appearing lymph node near xiphoid process PFT 2017 fev1 41% interpret with care and repeat recommended to clarify copd Echo 2017 nlm LVF EF 60%. mild MR and mod TVR Lexiscan 04/08 probably negative for ischemia will continue to wean down and off oxygen. bipap if needed cont duonedaniel scheduled chest cxr in AM 2 d echo to reevaluate her LVF and valves cont surveillance system monitor Incentive spirometer labs in AM cbc/bmp/lft (2) Symptomatic cholelithiasis Code(s): K80.20 - Calculus of gallbladder without cholecystitis without obstruction Status: Acute (3) Primary biliary cirrhosis Code(s): K74.3 - Primary biliary cirrhosis Status: Acute (1) Pulmonary edema Qualifiers: Chronicity: acute Qualified Code(s): J81.0 - Acute pulmonary edema
--- NOTE | 2018-02-25 03:43 | XR ---
EXAM DATE: 02/25/2018 6:00 AM EDT AGE/SEX: 57 years / Female INDICATIONS: Shortness of breath, possible pulmonary disease. CLINICAL DATA: This is the patient's subsequent encounter. Patient reports that signs and symptoms h ave been present for 2 days and indicates a pain score of Nonresponsive. MEDICAL/SURGICAL HISTORY: Hypercholesterolemia. Hypertension. Diabetes mellitus type II. Hyst erectomy. Cholecystectomy. COMPARISON: [facility], CHEST 1V SINGLE AP, 02/24/2018. . FINDINGS: Mild streaky bibasilar parenchymal opacities persist. Slight blunting of left costophrenic angle. Car diac contours are grossly unchanged. CONCLUSION: Mild basilar pleural-parenchymal findings are stable Electronically signed by: Rubio Oliveros MD 02/25/2018 3:42 AM EDT
[2018-02-25] MEDS ORDERED: Chlorhexidine Gluconate 2% 1 Pack (2 Cloths) TOPICAL PRN (04:00)
[2018-02-25 05:32] LABS: Baso % (Auto) 0.1 % (0.0-2.0); Hematocrit 43.6 % (35.0-46.0); Hemoglobin 15.1 gm/dL (11.6-15.3); Lymph # (Auto) 0.7 th/mm3 (1.0-4.8); Lymph % (Auto) 6.8 % (9.0-44.0); Mean Corpuscular HGB Conc 34.6 % (32.0-36.0); Mean Corpuscular Hemoglobin 30.6 pg (27.0-34.0); Mean Corpuscular Volume 88.3 fL (80.0-100.0); Mean Platelet Volume 10.5 fL (7.0-11.0); Mono # (Auto) 0.5 th/mm3 (0.0-0.9); Mono % (Auto) 4.7 % (0.0-8.0); Neut # (Auto) 9.3 th/mm3 (1.8-7.7); Neut % (Auto) 88.4 % (16.0-70.0); Platelet Count 142 th/mm3 (150-450); Red Blood Count 4.93 mil/mm3 (4.00-5.30); White Blood Count 10.5 th/mm3 (4.0-11.0)
[2018-02-25 05:36] LABS: Albumin 3.8 g/dL (3.4-5.0); Calcium 9.2 mg/dL (8.5-10.1); Carbon Dioxide 27.7 meq/L (21.0-32.0); Potassium 3.8 meq/L (3.5-5.1)
[2018-02-25 05:38] LABS: Total Protein 7.9 g/dL (6.4-8.2)
--- NOTE | 2018-02-25 06:51 | P.PNGS ---
Subjective Interval history: She feels much better. Denies SOB. Was taken off O2 and sats are stable in low 90s. C/o her dystonia bothering her and feeling somewhat "jumpy". No nausea. Physical Exam Vital signs: Vital Signs 02/24/18 08:23 02/24/18 12:59 02/24/18 13:15 Temperature 98.6 F 97.6 F Pulse Rate 101 H 98 H 114 H Respiratory Rate 18 22 28 H Blood Pressure 142/81 H 236/115 H 196/105 H Pulse Oximetry 97 92 L 91 L 02/24/18 13:20 02/24/18 13:30 02/24/18 13:45 Temperature Pulse Rate 105 H 109 H 111 H Respiratory Rate 28 H 28 H 24 Blood Pressure 245/109 H 164/61 H 167/74 H Pulse Oximetry 92 L 91 L 94 L 02/24/18 14:00 02/24/18 14:05 02/24/18 14:13 Temperature Pulse Rate 110 H Respiratory Rate 24 Blood Pressure 160/82 H Pulse Oximetry 94 L 90 L 96 02/24/18 14:15 02/24/18 14:30 02/24/18 14:45 Temperature Pulse Rate 106 H 106 H 100 H Respiratory Rate 24 24 24 Blood Pressure 160/82 H 160/82 H 124/70 Pulse Oximetry 95 95 94 L 02/24/18 15:00 02/24/18 15:30 02/24/18 15:45 Temperature Pulse Rate 107 H 102 H 101 H Respiratory Rate 24 24 22 Blood Pressure 130/72 141/77 H 127/76 Pulse Oximetry 94 L 92 L 92 L 02/24/18 16:00 02/24/18 16:30 02/24/18 16:45 Temperature 97.8 F Pulse Rate 102 H 99 H 96 H Respiratory Rate 22 20 18 Blood Pressure 128/75 138/63 109/62 Pulse Oximetry 95 95 95 02/24/18 17:15 02/24/18 17:28 02/24/18 19:00 Temperature 98.0 F Pulse Rate 98 H 90 Respiratory Rate 16 23 Blood Pressure 118/78 131/82 Pulse Oximetry 97 96 97 02/24/18 20:00 02/24/18 20:19 02/24/18 20:44 Temperature 97.9 F Pulse Rate 95 H Respiratory Rate 23 29 H Blood Pressure 113/69 Pulse Oximetry 96 96 02/24/18 21:19 02/25/18 00:00 02/25/18 04:00 Temperature 97.9 F 97.9 F Pulse Rate 88 74 91 H Respiratory Rate 16 15 21 Blood Pressure 95/57 L 127/75 Pulse Oximetry 97 97 Intake & Output 02/24/18 02/24/18 02/25/18 06:59 18:59 06:59 Intake Total 300 / 300 900 / 900 Output Total 1525 / 1525 1200 / 1200 Balance -1225 / -1225 -300 / -300 Weight 64.1 kg 63.7 kg Intake: IV 200 / 200 Ofirmev Inj 1,000 mg In 100 ml 100 / 100 @ 400 mls/hr IV.SIG STAFFING OPERATIONS MANAGER DYAN Rx#:[id number] Flagyl 500 MG Inj 100 ML @ 100 100 / 100 mls/hr IV.SIG [employer]AFFING OPERATIONS MANAGER DYAN Rx#: [id number] Oral 700 / 700 Anesthesia Amount 300 / 300 Output: Stool 0 / 0 Urine/Stool Mix 0 / 0 Estimated Blood Loss 25 / 25 Urine Amount (Catheter) 1500 / 1500 1200 / 1200 Indwelling Urethral Catheter 1500 / 1500 1200 / 1200 Other: # Bowel Movements 0 # Incontinent Bowel Movements 0 Weight On Admission 70.9 kg Narrative: NAD Comfortable in bed on room air nonlabored breathing O2 sats 93% Abd: soft, inc c/d/i - Urinary Catheter Management Indwelling Urethral Catheter Cath placed during this visit: no Results - Labs 02/25/18 04:46 02/25/18 04:46 Laboratory Results - last 24 hr 02/24/18 02/24/18 02/25/18 15:20 17:07 04:46 WBC 10.5 RBC 4.93 Hgb 15.1 Hct 43.6 MCV 88.3 MCH 30.6 MCHC 34.6 RDW 13.0 Plt Count 142 L MPV 10.5 Neut % (Auto) 88.4 H Lymph % (Auto) 6.8 L Harvey % (Auto) 4.7 Eos % (Auto) 0.0 Baso % (Auto) 0.1 Neut # (Auto) 9.3 H Lymph # (Auto) 0.7 L Harvey # (Auto) 0.5 Eos # (Auto) 0.0 Baso # (Auto) 0.0 WBC Differential . Differential Comment Auto diff final Hematology Comments Puncture Site Right radial Patient Temperature 98.6 O2 Saturation 86 L* ABG pH 7.35 L ABG pCO2 50 H ABG pO2 59 L* ABG HCO3 26 ABG O2 Content 19.5 ABG Base Excess 1.2 ABG Methemoglobin 1.5 Fei Test Present Hemoglobin 16.1 H Carboxyhemoglobin 3.5 O2 Delivery Device Nasal cannula Liter Flow 6.00 Critical Value Yes Sodium Potassium Chloride Carbon Dioxide Anion Gap BUN Creatinine Estimated GFR Random Glucose Calcium Total Bilirubin Direct Bilirubin Indirect Bilirubin AST ALT Alkaline Phosphatase Total Protein Albumin Nasal Screen MRSA (PCR) Not detected 02/25/18 04:46 WBC RBC Hgb Hct MCV MCH MCHC RDW Plt Count MPV Neut % (Auto) Lymph % (Auto) Harvey % (Auto) Eos % (Auto) Baso % (Auto) Neut # (Auto) Lymph # (Auto) Harvey # (Auto) Eos # (Auto) Baso # (Auto) WBC Differential Differential Comment Hematology Comments Puncture Site Patient Temperature O2 Saturation ABG pH ABG pCO2 ABG pO2 ABG HCO3 ABG O2 Content ABG Base Excess ABG Methemoglobin Fei Test Hemoglobin Carboxyhemoglobin O2 Delivery Device Liter Flow Critical Value Sodium 134 L Potassium 3.8 Chloride 96 L Carbon Dioxide 27.7 Anion Gap 10 BUN 10 Creatinine 0.84 Estimated GFR 70 L Random Glucose 164 H Calcium 9.2 Total Bilirubin 0.4 Direct Bilirubin 0.2 Indirect Bilirubin 0.2 AST 53 H ALT 46 Alkaline Phosphatase 146 H Total Protein 7.9 D Albumin 3.8 Nasal Screen MRSA (PCR) - Imaging Imaging: ITS Impressions Chest X-Ray 02/25/18 06:00 CONCLUSION: Mild basilar pleural-parenchymal findings are stable Assessment and Plan - Plan POD 1 s/p lap michael and liver biopsy. Post op issues including hypertensive urgency, respiratory distress required admission to [facility]. She has stabilized and improved overnight. Appreciate Dr. Rosario input. Transfer to 4N telemetry. Regular diet.
--- NOTE | 2018-02-25 11:26 | P.PNIM ---
Subjective Interval history: pt looks better this AM lying in bed. no distress asking me to figure out what is wrong with her heart Physical Exam Vital signs: Vital Signs 02/24/18 12:59 02/24/18 13:15 02/24/18 13:20 Temperature 97.6 F Pulse Rate 98 H 114 H 105 H Respiratory Rate 22 28 H 28 H Blood Pressure 236/115 H 196/105 H 245/109 H Pulse Oximetry 92 L 91 L 92 L 02/24/18 13:30 02/24/18 13:45 02/24/18 14:00 Temperature Pulse Rate 109 H 111 H 110 H Respiratory Rate 28 H 24 24 Blood Pressure 164/61 H 167/74 H 160/82 H Pulse Oximetry 91 L 94 L 94 L 02/24/18 14:05 02/24/18 14:13 02/24/18 14:15 Temperature Pulse Rate 106 H Respiratory Rate 24 Blood Pressure 160/82 H Pulse Oximetry 90 L 96 95 02/24/18 14:30 02/24/18 14:45 02/24/18 15:00 Temperature Pulse Rate 106 H 100 H 107 H Respiratory Rate 24 24 24 Blood Pressure 160/82 H 124/70 130/72 Pulse Oximetry 95 94 L 94 L 02/24/18 15:30 02/24/18 15:45 02/24/18 16:00 Temperature Pulse Rate 102 H 101 H 102 H Respiratory Rate 24 22 22 Blood Pressure 141/77 H 127/76 128/75 Pulse Oximetry 92 L 92 L 95 02/24/18 16:30 02/24/18 16:45 02/24/18 17:15 Temperature 97.8 F Pulse Rate 99 H 96 H 98 H Respiratory Rate 20 18 16 Blood Pressure 138/63 109/62 118/78 Pulse Oximetry 95 95 97 02/24/18 17:28 02/24/18 19:00 02/24/18 20:00 Temperature 98.0 F 97.9 F Pulse Rate 90 95 H Respiratory Rate 23 23 Blood Pressure 131/82 113/69 Pulse Oximetry 96 97 96 02/24/18 20:19 02/24/18 20:44 02/24/18 21:19 Temperature Pulse Rate 88 Respiratory Rate 29 H 16 Blood Pressure Pulse Oximetry 96 02/25/18 00:00 02/25/18 04:00 02/25/18 08:00 Temperature 97.9 F 97.9 F 98.2 F Pulse Rate 74 91 H 82 Respiratory Rate 15 21 20 Blood Pressure 95/57 L 127/75 126/71 Pulse Oximetry 97 97 95 02/25/18 09:00 02/25/18 09:50 Temperature Pulse Rate 82 93 H Respiratory Rate 24 Blood Pressure Pulse Oximetry 93 L Intake & Output 02/24/18 02/25/18 02/25/18 18:59 06:59 18:59 Intake Total 300 / 300 900 / 900 Output Total 1525 / 1525 1200 / 1200 Balance -1225 / -1225 -300 / -300 Weight 64.1 kg 63.7 kg Intake: IV 200 / 200 Ofirmev Inj 1,000 mg In 100 ml 100 / 100 @ 400 mls/hr IV.SIG SAP PP CONSULTANT DYAN Rx#:[id number] Flagyl 500 MG Inj 100 ML @ 100 100 / 100 mls/hr IV.SIG SAP PP CONSULTANT DYAN Rx#: [id number] Oral 700 / 700 Anesthesia Amount 300 / 300 Output: Stool 0 / 0 Urine/Stool Mix 0 / 0 Estimated Blood Loss 25 / 25 Urine Amount (Catheter) 1500 / 1500 1200 / 1200 Indwelling Urethral Catheter 1500 / 1500 1200 / 1200 Other: # Bowel Movements 0 # Incontinent Bowel Movements 0 Weight On Admission 70.9 kg heart reg lung no wheezing. mild diminished bases abd appropriately tender ext no edema - Urinary Catheter Management Indwelling Urethral Catheter Cath placed during this visit: yes, but has since been removed by the nurse Reason for continuing: Continue criteria not met Removal date: 02/25/18 Removal time: 07:00 Results - Labs CBC & Chem 7: 02/25/18 04:46 02/25/18 04:46 Laboratory Results - last 24 hr 02/24/18 02/24/18 02/25/18 15:20 17:07 04:46 WBC 10.5 RBC 4.93 Hgb 15.1 Hct 43.6 MCV 88.3 MCH 30.6 MCHC 34.6 RDW 13.0 Plt Count 142 L MPV 10.5 Neut % (Auto) 88.4 H Lymph % (Auto) 6.8 L [place] % (Auto) 4.7 Eos % (Auto) 0.0 Baso % (Auto) 0.1 Neut # (Auto) 9.3 H Lymph # (Auto) 0.7 L [place] # (Auto) 0.5 Eos # (Auto) 0.0 Baso # (Auto) 0.0 WBC Differential . Differential Comment Auto diff final Hematology Comments Puncture Site Right radial Patient Temperature 98.6 O2 Saturation 86 L* ABG pH 7.35 L ABG pCO2 50 H ABG pO2 59 L* ABG HCO3 26 ABG O2 Content 19.5 ABG Base Excess 1.2 ABG Methemoglobin 1.5 Fei Test Present Hemoglobin 16.1 H Carboxyhemoglobin 3.5 O2 Delivery Device Nasal cannula Liter Flow 6.00 Critical Value Yes Sodium Potassium Chloride Carbon Dioxide Anion Gap BUN Creatinine Estimated GFR Random Glucose Calcium Total Bilirubin Direct Bilirubin Indirect Bilirubin AST ALT Alkaline Phosphatase Total Protein Albumin Nasal Screen MRSA (PCR) Not detected 02/25/18 04:46 WBC RBC Hgb Hct MCV MCH MCHC RDW Plt Count MPV Neut % (Auto) Lymph % (Auto) [place] % (Auto) Eos % (Auto) Baso % (Auto) Neut # (Auto) Lymph # (Auto) [place] # (Auto) Eos # (Auto) Baso # (Auto) WBC Differential Differential Comment Hematology Comments Puncture Site Patient Temperature O2 Saturation ABG pH ABG pCO2 ABG pO2 ABG HCO3 ABG O2 Content ABG Base Excess ABG Methemoglobin Fei Test Hemoglobin Carboxyhemoglobin O2 Delivery Device Liter Flow Critical Value Sodium 134 L Potassium 3.8 Chloride 96 L Carbon Dioxide 27.7 Anion Gap 10 BUN 10 Creatinine 0.84 Estimated GFR 70 L Random Glucose 164 H Calcium 9.2 Total Bilirubin 0.4 Direct Bilirubin 0.2 Indirect Bilirubin 0.2 AST 53 H ALT 46 Alkaline Phosphatase 146 H Total Protein 7.9 D Albumin 3.8 Nasal Screen MRSA (PCR) - Imaging Impressions Chest X-Ray 02/24/18 00:00 CONCLUSION: Mild interstitial prominence otherwise negative Chest X-Ray 02/25/18 06:00 CONCLUSION: Mild basilar pleural-parenchymal findings are stable Assessment and Plan - Assessment (1) Pulmonary edema Code(s): J81.1 - Chronic pulmonary edema Status: Acute Plan: Pt is 57 yo admitted after lap michael and liver bx from the [facility]. She had an uneventful operation/1100 crystalloid, but in [facility] was severely hypertensive with sbp 220 and hypoxic. Pt was placed on bipap and given 40mg iv lasix for presumed flash pulmonary edema. Hydralazine was given for bp and pain med. I saw the pt in ICU and was on 6lnc and feeling better. her bp normalized. Pt reports that in past her bp intermittently spikes when getting her abdomen pains. Pt follows with [facility] and diagnosed with Primary biliary cirrhosis based on elevated AMA ab and with imaging finding of cirrhosis. CT a/p 02/21 fatty/nodular changes consistent with cirrhosis. mild splenomegaly. periportal lymphadenopathy CT chest 02/16 Benigh appearing lymph node near xiphoid process PFT 2017 fev1 41% interpret with care and repeat recommended to clarify copd Echo 2017 nlm LVF EF 60%. mild MR and mod TVR Lexiscan 04/08 probably negative for ischemia Today her oxygen requirements are trending down. continue to wean. small dose lasix. repeat cxr. cont duonebs scheduled chest xray shows persistent small left effusion 2 d echo to reevaluate her LVF and valves pending cont monitoring manager Incentive spirometer labs reviewed transfer to med/surg (2) Symptomatic cholelithiasis Code(s): K80.20 - Calculus of gallbladder without cholecystitis without obstruction Status: Acute (3) Primary biliary cirrhosis Code(s): K74.3 - Primary biliary cirrhosis Status: Acute (1) Pulmonary edema Qualifiers: Chronicity: acute Qualified Code(s): J81.0 - Acute pulmonary edema
[2018-02-25] MEDS ORDERED: Furosemide 20 MG Tablet PO ONE (12:15)
--- NOTE | 2018-02-25 13:21 | ECG ---
Date Performed: 02/24/2018 Time Performed: 14:32:12 PTAGE: 57 years EKG: SINUS TACHYCARDIA POSSIBLE LEFT ATRIAL ENLARGEMENT MINIMAL ST DEPRESSION ABNORMAL RHYTHM EC G PREVIOUS TRACING : 03/30/2017 03.04 DOCTOR: Bess Baeza Interpretating Date/Time 02/25/2018 13:14:19
--- NOTE | 2018-02-25 16:01 | ECHRPT ---
Indication: SHORTNESS OF BREATH CONCLUSIONS Normal left ventricular size. Wall thickness is normal. Trace mitral valve regurgitation. There is trace tricuspid valve regurgitation. The estimated pulmonary arterial pressure is 34.6 mmHg. BP: / HR: Rhythm: Sinus MEASUREMENTS (Male / Female) Normal Values Technical Quality:Technically difficult study 2D ECHO LV Diastolic Diameter PLAX 4.2 cm 4.2 - 5.9 / 3.9 - 5.3 cm LV Systolic Diameter PLAX 2.9 cm IVS Diastolic Thickness 1.0 cm 0.6 - 1.0 / 0.6 - 0.9 cm LVPW Diastolic Thickness 1.0 cm 0.6 - 1.0 / 0.6 - 0.9 cm LV Relative Wall Thickness 0.5 RV Internal Dim ED PLAX 1.7 cm LVOT Diameter 2.0 cm Aortic Root Diameter 2.6 cm LA Systolic Diameter LX 3.0 cm 3.0 - 4.0 / 2.7 - 3.8 cm M-MODE AV Cusp Separation MM 1.5 cm DOPPLER AV Peak Velocity 161.0 cm/s AV Peak Gradient 10.4 mmHg AV Mean Gradient 6.0 mmHg AV Velocity Time Integral 28.0 cm LVOT Peak Velocity 102.0 cm/s LVOT Peak Gradient 4.2 mmHg LVOT Velocity Time Integral 17.3 cm AV Area Cont Eq vti 1.9 cm AV Area Cont Eq pk 2.0 cm Mitral E Point Velocity 89.3 cm/s Mitral A Point Velocity 86.4 cm/s Mitral E to A Ratio 1.0 LV E' Lateral Velocity 9.8 cm/s Mitral E to LV E' Lateral Ratio 9.2 LV E' Septal Velocity 9.3 cm/s Mitral E to LV E' Septal Ratio 9.6 TR Peak Velocity 248.0 cm/s TR Peak Gradient 24.6 mmHg Right Atrial Pressure 10.0 mmHg Pulmonary Artery Systolic Pressu 34.6 mmHg Right Ventricular Systolic Press 34.6 mmHg PV Peak Velocity 75.9 cm/s PV Peak Gradient 2.3 mmHg FINDINGS LEFT VENTRICLE Normal left ventricular size. Wall thickness is normal. The left ventricular systolic function is normal with an estimated ejection fraction in the range of 60-65%. RIGHT VENTRICLE Normal right ventricular size and systolic function. LEFT ATRIUM The left atrial size is normal. RIGHT ATRIUM The right atrial size is normal. ATRIAL SEPTUM The interatrial septum not well visualized. AORTA The aortic root and proximal ascending aorta are not well visualized. MITRAL VALVE Trace mitral valve regurgitation. AORTIC VALVE Trileaflet aortic valve. No aortic valve stenosis or regurgitation. TRICUSPID VALVE There is trace tricuspid valve regurgitation. The estimated pulmonary arterial pressure is 34.6 mmHg. PULMONARY VALVE The pulmonary valve is not well visualized. VESSELS The inferior vena cava was not well visualized. PERICARDIUM No pericardial effusion. Bess Baeza MD (Electronically Signed) Final Date:25 February 2018 16:00
[2018-02-25] MEDS: Chlorhexidine Gluconate 2% 1 Pack (2 Cloths) TOPICAL SCH (19:31)
[2018-02-26] MEDS: Chlorhexidine Gluconate 2% 1 Pack (2 Cloths) TOPICAL SCH (05:45)
--- NOTE | 2018-02-26 05:46 | XR ---
EXAM DATE: 02/26/2018 6:00 AM EDT AGE/SEX: 57 years / Female INDICATIONS: Shortness of breath. CLINICAL DATA: This is the patient's subsequent encounter. Patient reports that signs and symptoms h ave been present for 3 days and indicates a pain score of 2/10. MEDICAL/SURGICAL HISTORY: Hypertension. Hypercholesterolemia. Anxiety. Cirrhosis. COPD. Divert iculitis. Cervical dystonia. Gallstones. Hiatal hernial. History of tuberculosis. Hysterectomy. [place] [facility] [place]. . FINDINGS: Slight bibasilar parenchymal opacity is present. Slight blunting of left cost phrenic angle. Cardiac contours are unchanged. CONCLUSION: No significant change Electronically signed by: Rubio Oliveros MD 02/26/2018 5:45 AM EDT
[2018-02-26 08:35] LABS: Calcium 8.9 mg/dL (8.5-10.1); Carbon Dioxide 31.7 meq/L (21.0-32.0); Potassium 3.2 meq/L (3.5-5.1)
--- NOTE | 2018-02-26 09:45 | P.PNIM ---
Subjective Interval history: pt wants to go home says she feels less swollen after lasix still on 2lnc Physical Exam Vital signs: Vital Signs 02/25/18 09:50 02/25/18 12:00 02/25/18 15:25 Temperature 98.2 F Pulse Rate 93 H 87 Respiratory Rate 24 19 15 Blood Pressure 136/65 Pulse Oximetry 93 L 95 02/25/18 16:00 02/25/18 16:09 02/25/18 20:00 Temperature 97.8 F 97.3 F L Pulse Rate 73 87 97 H Respiratory Rate 15 15 20 Blood Pressure 106/55 L 126/58 L Pulse Oximetry 97 94 L 02/25/18 20:17 02/25/18 23:55 02/26/18 00:00 Temperature 97.7 F Pulse Rate 87 76 85 Respiratory Rate 15 20 Blood Pressure 124/69 Pulse Oximetry 97 02/26/18 03:48 02/26/18 03:57 02/26/18 04:00 Temperature 97.6 F Pulse Rate 78 70 79 Respiratory Rate 15 20 Blood Pressure 126/58 L Pulse Oximetry 94 L 94 L 02/26/18 04:07 02/26/18 08:00 Temperature 98.4 F Pulse Rate 75 Respiratory Rate 20 Blood Pressure 116/64 Pulse Oximetry 94 L 94 L Intake & Output 02/25/18 02/26/18 02/26/18 18:59 06:59 18:59 Intake Total 960 / 960 960 / 960 Output Total 800 / 800 Balance 160 / 160 960 / 960 Weight 63.5 kg Intake: Oral 960 / 960 960 / 960 Output: Urine 800 / 800 Other: # Voids 5 heart reg lung diminished bases abd appropriately tender. bs ext no edema - Urinary Catheter Management Indwelling Urethral Catheter Cath placed during this visit: yes, but has since been removed by the nurse Reason for continuing: Continue criteria not met Removal date: 02/25/18 Removal time: 07:00 Results - Labs CBC & Chem 7: 02/25/18 04:46 02/26/18 07:05 Laboratory Results - last 24 hr 02/26/18 07:05 Sodium 139 Potassium 3.2 L Chloride 99 Carbon Dioxide 31.7 Anion Gap 8 BUN 8 Creatinine 0.73 Estimated GFR 82 L Random Glucose 112 H Calcium 8.9 - Imaging Impressions Chest X-Ray 02/26/18 06:00 CONCLUSION: No significant change Assessment and Plan - Assessment (1) Pulmonary edema Code(s): J81.1 - Chronic pulmonary edema Status: Acute Plan: Pt is 57 yo admitted after lap michael and liver bx from the [facility]. She had an uneventful operation/1100 crystalloid, but in [facility] was severely hypertensive with sbp 220 and hypoxic. Pt was placed on bipap and given 40mg iv lasix for presumed flash pulmonary edema. Hydralazine was given for bp and pain med. I saw the pt in ICU and was on 6lnc and feeling better. her bp normalized. Pt reports that in past her bp intermittently spikes when getting her abdomen pains. Pt follows with [facility] and diagnosed with Primary biliary cirrhosis based on elevated AMA ab and with imaging finding of cirrhosis. CT a/p 02/21 fatty/nodular changes consistent with cirrhosis. mild splenomegaly. periportal lymphadenopathy CT chest 02/16 Benigh appearing lymph node near xiphoid process PFT 2017 fev1 41% interpret with care and repeat recommended to clarify copd Echo 2017 nlm LVF EF 60%. mild MR and mod TVR Lexiscan 04/08 probably negative for ischemia Repeat 2d Echo 02/25: Normal left ventricular size. Wall thickness is normal. Trace mitral valve regurgitation. There is trace tricuspid valve regurgitation. The estimated pulmonary arterial pressure is 34.6 mmHg. pt given iv lasix then po lasix yesterday. she is down to 2lnc nursing to ambulate her in hallway and check o2 sats and wean off. incentive spirometer cont duonebs scheduled this morning. chest xray shows persistent small left effusion labs reviewed. replace [facility] nursing will call after pt sits and uses inc spirometer and walk test. (2) Symptomatic cholelithiasis Code(s): K80.20 - Calculus of gallbladder without cholecystitis without obstruction Status: Acute (3) Primary biliary cirrhosis Code(s): K74.3 - Primary biliary cirrhosis Status: Acute (1) Pulmonary edema Qualifiers: Chronicity: acute Qualified Code(s): J81.0 - Acute pulmonary edema
[2018-02-26] MEDS ORDERED: Temazepam 15 MG Capsule PO PRN (11:09)
--- NOTE | 2018-02-26 14:31 | P.PNGS ---
Subjective Patient reports: still having pain, pain is less, flatus, no bowel movement, nausea, vomiting (She states that she does not feel well overall. She has been out of bed only once or twice today. She is not been able to keep any fluids down and is feeling thirsty but also persistently nauseated, particularly after narcotics earlier today. Zofran did not help.) Physical Exam Vital signs: Vital Signs 02/25/18 15:25 02/25/18 16:00 02/25/18 16:09 Temperature 97.8 F Pulse Rate 73 87 Respiratory Rate 15 15 15 Blood Pressure 106/55 L Pulse Oximetry 97 02/25/18 20:00 02/25/18 20:17 02/25/18 23:55 Temperature 97.3 F L Pulse Rate 97 H 87 76 Respiratory Rate 20 15 Blood Pressure 126/58 L Pulse Oximetry 94 L 02/26/18 00:00 02/26/18 03:48 02/26/18 03:57 Temperature 97.7 F Pulse Rate 85 78 70 Respiratory Rate 20 15 Blood Pressure 124/69 Pulse Oximetry 97 94 L 02/26/18 04:00 02/26/18 04:07 02/26/18 08:00 Temperature 97.6 F 98.4 F Pulse Rate 79 73 Respiratory Rate 20 20 Blood Pressure 126/58 L 116/64 Pulse Oximetry 94 L 94 L 98 02/26/18 12:00 Temperature 98.5 F Pulse Rate 93 H Respiratory Rate 20 Blood Pressure 128/70 Pulse Oximetry 93 L Intake & Output 02/25/18 02/26/18 02/26/18 18:59 06:59 18:59 Intake Total 960 / 960 960 / 960 Output Total 800 / 800 Balance 160 / 160 960 / 960 Weight 63.5 kg Intake: Oral 960 / 960 960 / 960 Output: Urine 800 / 800 Other: # Voids 5 - Routine Abdominal Exam Present: soft Comments: The patient's abdomen is soft, with minimal distention. She has tenderness around her incisions but otherwise there is no guarding or rebound. - Urinary Catheter Management Indwelling Urethral Catheter Cath placed during this visit: yes, but has since been removed by the nurse Reason for continuing: Continue criteria not met Removal date: 02/25/18 Removal time: 07:00 Results - Labs 02/25/18 04:46 02/26/18 07:05 Laboratory Results - last 24 hr 02/26/18 07:05 Sodium 139 Potassium 3.2 L Chloride 99 Carbon Dioxide 31.7 Anion Gap 8 BUN 8 Creatinine 0.73 Estimated GFR 82 L Random Glucose 112 H Calcium 8.9 - Imaging Imaging: ITS Impressions Chest X-Ray 02/26/18 06:00 CONCLUSION: No significant change Assessment and Plan - Assessment (1) Symptomatic cholelithiasis Code(s): K80.20 - Calculus of gallbladder without cholecystitis without obstruction Status: Acute Plan: Patient has no overt problems after surgery, however she has persistently nauseated and has not been able to tolerate p.o. intake. Plan: The patient will be placed back on IV fluid and will be given additional medications including Toradol and promethazine. She will have labs drawn in the morning which include a CBC, BMP and LFTs.
[2018-02-26] MEDS ORDERED: Acetaminophen 325 MG Tablet PO PRN (15:12)
[2018-02-26] MEDS: Ketorolac Inj 30 MG/ML (IVP) Vial IV.PUSH SCH ×2 (15:14→21:27)
[2018-02-26] MEDS: KCL 20 mEq/D5W/NaCl 0.45% Inj 1,000 ML IV.CONT SCH ×2 (15:14→23:59)
[2018-02-27] MEDS: Ketorolac Inj 30 MG/ML (IVP) Vial IV.PUSH SCH ×2 (02:29→08:08)
[2018-02-27] MEDS: Chlorhexidine Gluconate 2% 1 Pack (2 Cloths) TOPICAL SCH (04:30)
[2018-02-27 05:28] VITALS: TEMP 98.7
[2018-02-27 06:02] LABS: Baso % (Auto) 0.6 % (0.0-2.0); Eos # (Auto) 0.1 th/mm3 (0.0-0.4); Eos % (Auto) 1.8 % (0.0-4.0); Hematocrit 39.1 % (35.0-46.0); Hemoglobin 13.3 gm/dL (11.6-15.3); Lymph % (Auto) 34.6 % (9.0-44.0); Mean Corpuscular Volume 91.1 fL (80.0-100.0); Mean Platelet Volume 10.7 fL (7.0-11.0); Mono # (Auto) 0.4 th/mm3 (0.0-0.9); Mono % (Auto) 7.8 % (0.0-8.0); Neut # (Auto) 3.1 th/mm3 (1.8-7.7); Neut % (Auto) 55.2 % (16.0-70.0); Platelet Count 165 th/mm3 (150-450); Red Blood Count 4.29 mil/mm3 (4.00-5.30); Red Cell Distribution Width 13.3 % (11.6-17.2); White Blood Count 5.7 th/mm3 (4.0-11.0)
[2018-02-27 06:36] LABS: Albumin 3.3 g/dL (3.4-5.0); Calcium 8.5 mg/dL (8.5-10.1); Carbon Dioxide 29.8 meq/L (21.0-32.0); Potassium 3.6 meq/L (3.5-5.1)
[2018-02-27 06:38] LABS: Total Protein 6.8 g/dL (6.4-8.2)
[2018-02-27] MEDS: KCL 20 mEq/D5W/NaCl 0.45% Inj 1,000 ML IV.CONT SCH (08:05)
[2018-02-27 08:37] VITALS: BP 138/85
[2018-02-27 09:15] VITALS: PULSE 82; RESP 18; O2SAT 94
--- NOTE | 2018-02-27 10:09 | P.PNIM ---
Subjective Interval history: Pt was requiring 2L of supplemental O2 overnight She was having some nausea overnight but no reported nausea at this time She is very frustrated and threatening to leave AMA if she does not get discharged this morning. Physical Exam Vital signs: Vital Signs 02/26/18 12:00 02/26/18 16:00 02/26/18 17:07 Temperature 98.5 F 100.4 F H 98.7 F Pulse Rate 93 H 112 H Respiratory Rate 20 20 Blood Pressure 128/70 129/61 Pulse Oximetry 93 L 93 L 02/26/18 20:00 02/27/18 00:00 02/27/18 04:00 Temperature 98.9 F 98.8 F 98.7 F Pulse Rate 121 H 88 85 Respiratory Rate 19 17 17 Blood Pressure 115/56 L 102/59 L 111/61 Pulse Oximetry 95 96 93 L 02/27/18 05:03 02/27/18 08:00 02/27/18 09:15 Temperature 98.7 F Pulse Rate 78 86 82 Respiratory Rate 20 17 18 Blood Pressure 138/85 Pulse Oximetry 95 94 L Intake & Output 02/26/18 02/27/18 02/27/18 18:59 06:59 18:59 Intake Total 480 / 480 [id number] / [id number] 1000 / 1000 Balance 480 / 480 [id number] / [id number] 1000 / 1000 Weight 65.5 kg Intake: IV [id number] / [id number] 1000 / 1000 D5W/1/2NS + KCL 20 mEq Inj 1, [id number] / [id number] 1000 / 1000 000 ML @ 125 mls/hr IV.CONT . Q8H DYAN Rx#:[id number] Oral 480 / 480 Other: # Voids 3 2 Narrative: General: NAD Chest: CTA, nonlabored breathing O2 sats 93% on RA Cardiac: Regular Abd: +BS, soft, NT, incisions c/d/i Ext: no edema - Urinary Catheter Management Indwelling Urethral Catheter Cath placed during this visit: yes, but has since been removed by the nurse Reason for continuing: Continue criteria not met Removal date: 02/25/18 Removal time: 07:00 Results - Labs CBC & Chem 7: 02/27/18 04:03 02/27/18 04:03 Laboratory Results - last 24 hr 02/27/18 02/27/18 04:03 04:03 WBC 5.7 RBC 4.29 Hgb 13.3 Hct 39.1 MCV 91.1 MCH 31.0 MCHC 34.0 RDW 13.3 Plt Count 165 MPV 10.7 Neut % (Auto) 55.2 Lymph % (Auto) 34.6 [place] % (Auto) 7.8 Eos % (Auto) 1.8 Baso % (Auto) 0.6 Neut # (Auto) 3.1 Lymph # (Auto) 2.0 [place] # (Auto) 0.4 Eos # (Auto) 0.1 Baso # (Auto) 0.0 WBC Differential . Differential Comment Auto diff final Sodium 140 Potassium 3.6 Chloride 101 Carbon Dioxide 29.8 Anion Gap 9 BUN 5 L Creatinine 0.75 Estimated GFR 79 L Random Glucose 110 H Calcium 8.5 Total Bilirubin 0.4 Direct Bilirubin 0.1 Indirect Bilirubin 0.3 AST 56 H ALT 44 Alkaline Phosphatase 144 H Total Protein 6.8 D Albumin 3.3 L - Imaging Chest X-Ray 02/24/18 00:00 CONCLUSION: Mild interstitial prominence otherwise negative Chest X-Ray 02/25/18 06:00 CONCLUSION: Mild basilar pleural-parenchymal findings are stable Chest X-Ray 02/26/18 06:00 CONCLUSION: No significant change Assessment and Plan - Assessment (1) Pulmonary edema Code(s): J81.1 - Chronic pulmonary edema Status: Acute Plan: -Pt is 57 yo admitted after lap michael and liver bx from the PACU. She had an uneventful operation and received 1100 crystalloid, but in PACU was severely hypertensive with SBP 220 and hypoxic. Pt was placed on BiPAP and given 40mg iv Lasix for presumed flash pulmonary edema. Hydralazine was given for bp and pain med. - Pt was initially seen by our group while the pt was in ICU and was on 6L NC and feeling better. Her BP normalized. Pt reports that in past her BP intermittently spikes when getting her abdomen pains. - Pt follows with [facility] and diagnosed with Primary biliary cirrhosis based on elevated AMA ab and with imaging finding of cirrhosis. - Outpt CT abd/pelvis (02/21/18) with fatty/nodular changes consistent with cirrhosis. mild splenomegaly. periportal lymphadenopathy - Outpt CT chest (02/16/18) Benign appearing lymph node near xiphoid process - PFT 2017 fev1 41% interpret with care and repeat recommended to clarify copd - Echo 2017 nlm LVF EF 60%. mild MR and mod TVR - Lexiscan 04/08 probably negative for ischemia - Repeat 2d Echo 02/25: - Normal left ventricular size. - Wall thickness is normal. - Trace mitral valve regurgitation. - There is trace tricuspid valve regurgitation. - The estimated pulmonary arterial pressure is 34.6 mmHg. - Pt was given iv Lasix then po Lasix on 02/24 and 02/25. She is down to 2L supplemental O2 via NC - Yesterday the pt had increased nausea and dizziness and pt was ordered some IVF. - Cont Duonebs scheduled this morning. - Chest X-Ray (02/25) --> Mild basilar pleural-parenchymal findings are stable - Repeat CXR (02/26) --> persistent small left effusion - Stop IVF - IS - Pt was off oxygen at the time of my examination this morning and very frustrated and threatening to leave AMA. Her O2 sats were rechecked and she was at 94% on RA and refusing to do a walk test to see if she needed O2 at home set up. - She reports that she has an appt with Dr. Mir next week already scheduled - We recommended that she followup with her PCP, Dr. Munson, as well for rechecked on her O2 sats - Pt does not want any pain medications at the time of discharge. (2) Symptomatic cholelithiasis Code(s): K80.20 - Calculus of gallbladder without cholecystitis without obstruction Status: Acute (3) Primary biliary cirrhosis Code(s): K74.3 - Primary biliary cirrhosis Status: Acute (1) Pulmonary edema Qualifiers: Chronicity: acute Qualified Code(s): J81.0 - Acute pulmonary edema
--- NOTE | 2018-02-27 11:49 | P.DS ---
Date of admission: 02/24/18 15:59 Primary care physician: Annetta Munson MD Brief History from admission: 57 yo F with PBC and gallstones admitted for outpatient cholecystectomy. DS: Diagnosis - Discharge Diagnosis (1) Symptomatic cholelithiasis Status: Acute (2) Primary biliary cirrhosis Status: Acute (3) Pulmonary edema Status: Acute DS: Summary Hospital Course: Post op patient had issues with respiratory distress, possible pulmonary edema, severe HTN. SHe was admitted [facility] where O2 requirements were able to be weaned. She had a couple of doses of lasix and CXR remained stable. ECHO showed appropratie LVEF. Tolerating some diet and nausea improving. - Time Spent with Patient Total time spent providing and/or coordinating discharge services: Less than 30 minutes - Quality: VTE Deep Vein Thrombosis/Pulmonary Embolism Present on Admission: No Exam Vital signs: Vital Signs 02/26/18 12:00 02/26/18 16:00 02/26/18 17:07 Temperature 98.5 F 100.4 F H 98.7 F Pulse Rate 93 H 112 H Respiratory Rate 20 20 Blood Pressure 128/70 129/61 Pulse Oximetry 93 L 93 L 02/26/18 20:00 02/27/18 00:00 02/27/18 04:00 Temperature 98.9 F 98.8 F 98.7 F Pulse Rate 121 H 88 85 Respiratory Rate 19 17 17 Blood Pressure 115/56 L 102/59 L 111/61 Pulse Oximetry 95 96 93 L 02/27/18 05:03 02/27/18 08:00 02/27/18 09:15 Temperature 98.7 F Pulse Rate 78 81 82 Respiratory Rate 20 17 18 Blood Pressure 138/85 Pulse Oximetry 95 94 L Intake & Output 02/26/18 02/27/18 02/27/18 18:59 06:59 18:59 Intake Total 480 / 480 [id number] / [id number] 1000 / 1000 Balance 480 / 480 [id number] / [id number] 1000 / 1000 Weight 65.5 kg Intake: IV [id number] / [id number] 1000 / 1000 D5W/1/2NS + KCL 20 mEq Inj 1, [id number] / [id number] 1000 / 1000 000 ML @ 125 mls/hr IV.CONT . Q8H DYAN Rx#:[id number] Oral 480 / 480 Other: # Voids 3 2 Narrative: NAD Abd: soft mild distention, inc c/d/i Results Procedures completed during hospitalization: Laparoscopic cholecystectomy Liver biopsy Pending studies at discharge: Pending at discharge 02/24/18 14:19 Surgical [PTH] Routine Labs on day of discharge: Labs from last 24 hours 02/27/18 02/27/18 04:03 04:03 WBC 5.7 RBC 4.29 Hgb 13.3 Hct 39.1 MCV 91.1 MCH 31.0 MCHC 34.0 RDW 13.3 Plt Count 165 MPV 10.7 Neut % (Auto) 55.2 Lymph % (Auto) 34.6 Will % (Auto) 7.8 Eos % (Auto) 1.8 Baso % (Auto) 0.6 Neut # (Auto) 3.1 Lymph # (Auto) 2.0 Will # (Auto) 0.4 Eos # (Auto) 0.1 Baso # (Auto) 0.0 WBC Differential . Differential Comment Auto diff final Sodium 140 Potassium 3.6 Chloride 101 Carbon Dioxide 29.8 Anion Gap 9 BUN 5 L Creatinine 0.75 Estimated GFR 79 L Random Glucose 110 H Calcium 8.5 Total Bilirubin 0.4 Direct Bilirubin 0.1 Indirect Bilirubin 0.3 AST 56 H ALT 44 Alkaline Phosphatase 144 H Total Protein 6.8 D Albumin 3.3 L - Impressions ITS Impressions Chest X-Ray 02/26/18 06:00 CONCLUSION: No significant change Discharge Plan - Discharge Disposition Patient Disposition: 01 Discharge Home - Discharge Condition Condition: Stable - Discharge Order Discharge Orders: Discharge Order (Routine); Ordered 02/27/18 Ordered By: Pablo Rangel - Discharge Details Anticipated Discharge Date: 02/27/18 - Physicians Team Primary Care Provider: Annetta Munson Attending Provider: Sebastian Mir Other Providers: Nini Price MD ; Alonso Rosario MD - Rxs /Orders / Referrals /Forms Prescriptions: No Action albuterol sulfate 0.63 mg/3 mL Solution For Nebulization 0.63 mg INHALATION QID PRN (Reason: Shortness Of Breath) albuterol sulfate [ProAir HFA] 90 mcg/actuation Hfa Aerosol Inhaler 2 puff INHALATION Q6H PRN (Reason: Shortness Of Breath Or Wheezing) alprazolam [Xanax] 1 mg Tablet 1 mg PO BID PRN (Reason: Anxiety) atorvastatin 40 mg Tablet 40 mg PO DAILY cholecalciferol (vitamin D3) [Vitamin D3] 4,000 unit Capsule 4,000 unit PO DAILY lactulose 10 gram/15 mL Solution 10 g PO QID pantoprazole 40 mg Tablet,Delayed Release (Dr/Ec) 40 mg PO DAILY Referrals: Annetta Munson MD [Primary Care Provider] - See Instructions (THE OFFICE IS CLOSED FOR LUNCH. CALL FOR AN APPOINTMENT WITH DR. MUNSON) - Discharge Instructions Patient Printed Instructions: Laparoscopic Cholecystectomy (DC)
== END 2018-02-27 12:47 | disposition home or self-care (01) ==
LOC: HSDC 07:33 → HSDI 15:59 → HIMC 17:00 → N04 02-25 21:10
PROVIDERS: ADMIT Surgery; ATTEND Surgery